=== PATIENT | female | born 1990 | race Caucasian/White ===

== ENCOUNTER 2016-11-07 13:21 | Emergency (ER) | payer BC, OTHER ==
[2016-11-07] MEDS ORDERED: Morphine VIAL* 10 MG/ML 1 ML VIAL IM ONE (13:49)
--- NOTE | 2016-11-07 13:57 | UC ---
Lower Extremity/Ankle HPI - HPI Summary HPI Summary: SHe has hx of two prior meniscus surgeries and ACL repair. She has had this occur in the past where she all of the sudden she will have locking. normally her partner will pull on her leg and manipulate it and then it gets unlocked again. This time, it is staying locked. - History of Current Complaint Chief Complaint: UCLowerExtremity Stated Complaint: LEFT KNEE PAIN Time Seen by Provider: 11/07/16 13:42 Hx Last Menstrual Period: 10/24/16 ?: No Onset/Duration: Sudden Onset Severity Initially: Moderate Severity Currently: Moderate Aggravating Factor(s): Standing, Ambulation Able to Bear Weight: No - Risk Factors Gout Risk Factors: Obesity - Allergies/Home Medications Allergies/Adverse Reactions: Allergies Allergy/AdvReac Type Severity Reaction Status Date / Time No Known Allergies Allergy Verified 11/07/16 13:39 Home Medications: Home Medications Oral Contraceptive 1 tab PO DAILY WITH MEAL 11/07/16 [History] PMH/Surg Hx/FS Hx/Imm Hx Endocrine History Of: Denies: Diabetes - Surgical History Surgical History: Yes Surgery Procedure, Year, and Place: left knee meniscus repair x2. left ACL 2007 - Family History Known Family History: Negative: Diabetes - Social History Lives: With Family Alcohol Use: None Substance Use Type: None Smoking Status (MU): Never Smoked Tobacco Review of Systems All Other Systems Reviewed And Are Negative: Yes Physical Exam Triage Information Reviewed: Yes Appearance: Pain Distress - obvios pain with any change of position of the knee. , Obese Vital Signs: Initial Vital Signs Temp 97.8 F 11/07/16 13:30 Pulse 87 11/07/16 13:30 Resp 16 11/07/16 13:30 BP 145/72 11/07/16 13:30 Pulse Ox 100 11/07/16 13:30 Vital Signs Reviewed: Yes Eye Exam: Normal Eyes: Positive: Conjunctiva Clear. Negative: Conjunctiva Inflamed ENT Exam: Normal Neck exam: Normal Neck: Positive: Supple, Nontender, No Lymphadenopathy Respiratory Exam: Normal Respiratory: Positive: Chest non-tender, Lungs clear, Normal breath sounds, No respiratory distress, No accessory muscle use Cardiovascular Exam: Normal Cardiovascular: Positive: RRR, No Murmur, Pulses Normal Abdomen Description: Positive: Nontender, No Organomegaly, Soft Musculoskeletal Exam: Other - left knee remains in extension. THere is no redness or effusion. She resists flexion due to pain. Weith knee in 30 degrees flexion, there is no instability with valgus and varus stress. good end point with lochmans. Neurological Exam: Normal Neurological: Positive: Alert, Muscle Tone Normal, Fatigued Lower Extremity Course/Dx - Course Course Of Treatment: morphine and bartolome wrap applied. she is able to touch down but not walk well. We will give crutches as well. she will f/u [facility] Dr. Nova. - Differential Dx/Diagnosis Differential Diagnosis/HQI/PQRI: Fracture (Closed), Fracture (Open) Provider Diagnoses: meniscus tear. knee strain. left knee pain. Discharge - Discharge Plan Condition: Good Disposition: HOME Prescriptions: Naproxen TAB* [Naprosyn 250 mg TAB*] 500 mg PO Q8H PRN #20 tab PRN Reason: Pain traMADol TAB* [Ultram*] 50 mg PO Q12H PRN #20 tab MDD 2 PRN Reason: Pain Patient Education Materials: Knee Pain (ED) Referrals: Merced Sosa PA [Primary Care Provider] - Gabrielle PARR,[employer] [Medical Doctor] -
[2016-11-07 14:48] VITALS: BP 124/75
== END 2016-11-07 14:50 | disposition home or self-care (01) ==
LOC: UCCORT 13:21
DX: S83.207A Unspecified tear of unspecified meniscus, current injury, left knee, initial encounter (principal); X58.XXXA Exposure to other specified factors, initial encounter; Y93.9 Activity, unspecified; Y92.9 Unspecified place or not applicable; E66.9 Obesity, unspecified
CPT/HCPCS: 96372; 99213; G0463; J2270

== ENCOUNTER 2018-08-23 08:38 | Emergency (ER) | payer OTHER ==
[2018-08-23 08:55] VITALS: BP 127/74
--- NOTE | 2018-08-23 09:05 | UC ---
UC General HPI - HPI Summary HPI Summary: Congestion, sore throat, and cough for two weeks. Congestion and cough mostly resolved. Sore throat and hoarse voice persists. No known fever. Thirteen weeks . - History of Current Complaint Chief Complaint: UCGeneralIllness Stated Complaint: ST Time Seen by Provider: 08/23/18 08:55 Hx Obtained From: Patient Hx Last Menstrual Period: May 2018 Onset/Duration: Gradual Onset Timing: Constant Pain Intensity: 6 Associated Signs & Symptoms: Negative: Fever, SOB, Wheezing - Allergy/Home Medications Allergies/Adverse Reactions: Allergies Allergy/AdvReac Type Severity Reaction Status Date / Time albuterol Allergy Hives Verified 08/23/18 08:53 Home Medications: Home Medications NK [No Home Medications Reported] 08/23/18 [History Confirmed 08/23/18] PMH/Surg Hx/FS Hx/Imm Hx - Additional Past Medical History Additional PMH: 13 weeks - Surgical History Surgical History: Yes Surgery Procedure, Year, and Place: left knee meniscus repair x2. left ACL 2006 - Family History Known Family History: Negative: Diabetes - Social History Lives: With Family Alcohol Use: None Substance Use Type: None Smoking Status (MU): Never Smoked Tobacco - Immunization History Vaccination Up to Date: Yes Review of Systems All Other Systems Reviewed And Are Negative: Yes Constitutional: Positive: Negative Skin: Positive: Negative Eyes: Positive: Negative ENT: Positive: Sore Throat Respiratory: Positive: Negative Cardiovascular: Positive: Negative Gastrointestinal: Positive: Negative Genitourinary: Positive: Negative Motor: Positive: Negative Neurovascular: Positive: Negative Musculoskeletal: Positive: Negative Neurological: Positive: Negative Psychological: Positive: Negative Physical Exam Triage Information Reviewed: Yes Appearance: Well-Appearing Vital Signs: Initial Vital Signs Temp 98 F 08/23/18 08:51 Pulse 94 08/23/18 08:51 Resp 16 08/23/18 08:51 BP 127/74 08/23/18 08:51 Pulse Ox 100 08/23/18 08:51 Vital Signs Reviewed: Yes Eyes: Positive: Conjunctiva Clear ENT: Positive: Pharyngeal erythema - slight, TMs normal, Hoarse voice, Uvula midline. Negative: Nasal congestion, Nasal drainage, Trismus, Muffled voice Neck: Positive: Supple, Nontender, Enlarged Nodes @ - peritonsilar nodes Respiratory: Positive: Lungs clear, Normal breath sounds, No respiratory distress Cardiovascular: Positive: RRR, No Murmur Abdomen Description: Positive: Nontender, Soft. Negative: Distended, Guarding, Hepatomegaly, Splenomegaly Bowel Sounds: Positive: Present Musculoskeletal: Positive: ROM Intact Neurological: Positive: Alert Psychological: Positive: Age Appropriate Behavior Skin Exam: Normal Diagnostics - Laboratory Diagnostic Studies Completed/Ordered: rapid strep=neg Course/Dx - Course Course Of Treatment: rapid strep=neg, tx supportive. no concern for abscess. - Diagnoses Provider Diagnosis: Pharyngitis, Laryngitis Discharge - Sign-Out/Discharge Documenting (check all that apply): Patient Departure All imaging exams completed and their final reports reviewed: No Studies - Discharge Plan Condition: Stable Disposition: HOME Patient Education Materials: Pharyngitis (ED), Laryngitis (ED) Referrals: Travis Perez MD [Medical Doctor] - Additional Instructions: FOLLOW UP IF NOT BETTER IN 3-5 DAYS OR SOONER IF WORSE. - Billing Disposition and Condition Condition: STABLE Disposition: Home - Attestation Statements Provider Attestation: I was available for consult. This patient was seen by the ADRIANNE. The patient was not presented to, seen by, or examined by me. EK
== END 2018-08-23 09:19 | disposition home or self-care (01) ==
LOC: UCCORT 08:38
DX: Z88.8 Allergy status to other drugs, medicaments and biological substances (principal); Z3A.13 13 weeks gestation of pregnancy; J04.0 Acute laryngitis; O26.891 Other specified pregnancy related conditions, first trimester
CPT/HCPCS: 87651; 99211; G0463